=== PATIENT | female | born 1985 | race Caucasian/White ===

== ENCOUNTER → 2019-08-18 | Outpatient (CLI) | payer BC ==
--- NOTE | 2019-08-18 15:22 | KCIC ---
3 views left hand without comparison for patient feels lump on the anterior aspect of the hand between the second and third digits, pain for one year, lump for one week. FINDINGS: There is no fracture, dislocation, or acute osseous abnormality identified. Joints and soft tissues are grossly unremarkable. No radiopaque foreign bodies are seen. No unexpected calcifications. IMPRESSION: 1. No acute osseous abnormality of the left hand. Electronically signed by: Pb Wilkerson MD (08/18/2019 3:20 PM) [facility]
== END | disposition home or self-care (01) ==
LOC: KCIC 08:56
PROVIDERS: ATTEND Nurse Practitioner Family
DX: R22.32 Localized swelling, mass and lump, left upper limb (principal)
CPT/HCPCS: 73130

== ENCOUNTER → 2021-03-27 | Outpatient (CLI) | payer BC ==
--- NOTE | 2021-03-28 03:28 | KCIC ---
Single view pelvis and two-view left hip dated 03/27/2021. No comparison available. CLINICAL INDICATION: Pain. FINDINGS: AP view pelvis and two-view left hip show normal bony alignment. No displaced fracture. No acute osse ous or articular abnormality. No periostitis or bone destruction. IMPRESSION: No acute radiographic abnormality. Electronically signed by: Preet Ruiz MD (03/28/2021 3:26 AM) [facility]
--- NOTE | 2021-03-28 03:28 | KCIC ---
3 views lumbar spine dated 03/27/2021. No comparison available. Clinical data indication: Pain. FINDINGS: 3 views of lumbar spine show normal sagittal alignment. Vertebral body heights are maintained. No sig nificant endplate hypertrophic changes. There is mild hypertrophic change of the lower lumbar apophys eal joints. IMPRESSION: No acute radiographic abnormality. Electronically signed by: Preet Ruiz MD (03/28/2021 3:26 AM) [facility]
== END ==
LOC: KCIC 12:23
PROVIDERS: ATTEND Nurse Practitioner Family
DX: M89.38 Hypertrophy of bone, other site (principal); M25.552 Pain in left hip
CPT/HCPCS: 72100; 73502

== ENCOUNTER → 2021-04-17 | Outpatient (CLI) | payer BC ==
--- NOTE | 2021-04-17 17:06 | KCIC ---
EXAM: Lumbar spine MRI without contrast. HISTORY: Pain. TECHNIQUE: Multiplanar, multisequence magnetic resonance imaging of the lumbar spine was performed wi thout contrast. COMPARISON: None. FINDINGS: There is mild lumbar scoliosis. There is no listhesis. The vertebral bodies are normal in h eight. There is no fracture. There is no suspicious osseous lesion. There are few tiny osseous kate iomas. The conus terminates at L1. There is minimal facet arthropathy at multiple levels. There is no disc protrusion or significant foraminal or central canal stenosis. IMPRESSION: Minimal facet arthropathy involving the mid and lower lumbar spine. There is no acute fin ding or significant foraminal or central canal stenosis. Electronically signed by: Latisha Mcdowell MD (04/17/2021 5:03 PM) [id number]
== END ==
LOC: KCIC MRI 15:02
PROVIDERS: ATTEND Nurse Practitioner Family
DX: M47.816 Spondylosis without myelopathy or radiculopathy, lumbar region (principal)
CPT/HCPCS: 72148